=== PATIENT | female | born 1995 | race Caucasian/White ===

== ENCOUNTER 2017-05-15 09:26 | Emergency (ER) | payer MEDICARE, MEDICAID ==
[~2017-05-15] VITALS: Ht 172.7 cm; Wt 72.6 kg
--- NOTE | 2017-05-15 10:11 | Emergency Room Report ---
History of Present Illness General Chief Complaint: Lower Extremity Injury Source: Medical Record Present Illness HPI 21-year-old female with complaint of right foot swelling 5 days after ankle and foot injury at daycare. Has been monitored by nurse at facility for last 5 days but sent to ER for x-ray after swelling did not completely resolve Patient complaining of pain to both right ankle and top of right foot Ambulating with right-sided limp Not taking any medication for pain No previous injury to right ankle or foot Allergies: Coded Allergies: No Known Allergies (Unverified , 05/15/17) Patient History Past Medical History: none Past Surgical History: none Social History: Denies: smoking, alcohol use, drug use Last Menstrual Period: 04/2017 Now: No Immunizations: UTD Reviewed Nursing Documentation: PMH: Agreed, PSxH: Agreed Nursing Documentation-PMH Past Medical History: No History, Except For Hx Seizures: Yes - sppech disorder, Develomental and Intellectual Delay Review of Systems All Other Systems: negative except mentioned in HPI Physical Exam Vital Signs Date Time Temp Pulse Resp B/P (MAP) Pulse Ox O2 Delivery O2 Flow Rate FiO2 05/15/17 09:30 98.1 94 16 111/66 99 Room Air Sp02 EP Interpretation: reviewed, normal General Appearance: normal inspection, well appearing, no apparent distress, alert, GCS 15, non-toxic Head: normocephalic, atraumatic Eyes: bilateral eye PERRL, bilateral eye EOMI ENT: normal ENT inspection, hearing grossly normal, normal pharynx, no angioedema, normal voice, TMs + canals normal, uvula midline, moist mucus membranes Neck: normal inspection, full range of motion, supple, thyroid normal, no meningismus, no bony tend Respiratory: normal inspection, lungs clear, normal breath sounds, no rhonchi, no respiratory distress, no retraction, no accessory muscle use, no wheezing, speaking full sentences Cardiovascular #1: regular rate, rhythm, no edema, no JVD, normal capillary refill Gastrointestinal: normal inspection, normal bowel sounds, non tender, soft, no mass, no peritonitis, non-distended, no guarding, no hernia, no pulsatile mass Genitourinary: no CVA tenderness Musculoskeletal: normal inspection, back normal, normal range of motion, no calf tenderness, pelvis stable, Mari's Sign negative, other - right foot: mild swelling to the dorsum and right lateral malleolus Neurologic: normal inspection, alert, oriented x3, responsive, customs inspector III-XII nml as tested, motor strength/tone normal, cerebellar normal, normal gait, speech normal Psychiatric: normal inspection, judgement/insight normal, mood/affect normal, no suicidal/homicidal ideation, no delusions Skin: normal inspection, normal color, no rash Lymphatic: normal inspection, no adenopathy Medical Decision Making Diagnostic Impression: Primary Impression: Right foot injury Qualified Codes: S99.921A - Unspecified injury of right foot, initial encounter Additional Impression: Foot contusion Qualified Codes: S90.31XA - Contusion of right foot, initial encounter ER Course X-rays of the ankle and foot negative for acute trauma on ER review Likely minor foot contusion Advised ice, compression, elevation NSAIDs as needed ER course: Patient has remained stable during ED stay. Patient is to be discharged to home. Prescriptions given are murrieta Patient is instructed to follow up with their primary care doctor within 5 days. Strict return precautions discussed with patient such as fever, chills, worsening/severe pain, nausea, vomiting, which may indicate severe illness. Patient verbalizes understanding and agrees with plan. Please note that this Emergency Department Report was dictated using [employer] technician technology software, occasionally this can lead to erroneous entry secondary to interpretation by the dictation equipment Other X-Ray Diagnostic Results Other X-Ray Diagnostic Results #1: X-Ray ordered: Right foot # of Views/Limited Vs Complete: 3 View Indication: Pain EP Interpretation: Yes Interpretation: no dislocation, no soft tissue swelling, no fractures Impression: No acute disease Electronically Signed by: Dr Arvind Samuels MD Other X-Ray Diagnostic Results #2: X-Ray ordered: Right ankle # of Views/Limited Vs Complete: 3 View Indication: Pain EP Interpretation: Yes Interpretation: no dislocation, no soft tissue swelling, no fractures Impression: No acute disease Electronically Signed by: Dr Arvind Samuels MD Last Vital Signs Date Time Temp Pulse Resp B/P (MAP) Pulse Ox O2 Delivery O2 Flow Rate FiO2 05/15/17 09:30 98.1 94 16 111/66 99 Room Air Status: improved Disposition: HOME, SELF-CARE ARVIND SAMUELS M.D. May 15, 2017 10:11
[2017-05-15] MEDS ORDERED: IBUPROFEN600 MG ORAL (10:13)
[2017-05-15 10:20] VITALS: BP 105/62
--- NOTE | 2017-05-15 11:26 | Diagnostic Imaging Report ---
Indication: Reason For Exam: PAIN Technique: 3 views of the right ankle Comparison: none Findings: Unusual spur seen coming off the tip of the distal fibula. May indicate developmental abnormality or higher injury. No acute fractures. No dislocations. Impression: Unusual distal fibular spur No acute bony trauma This agrees with the preliminary interpretation provided by the emergency room physician
--- NOTE | 2017-05-15 17:10 | Diagnostic Imaging Report ---
Indication: Reason For Exam: PAIN Technique: 3 views right foot Comparison: none Findings: No acute fractures. No dislocations. Mild hammertoe deformity of the fourth and fifth toes. Joint spaces are preserved. Impression: No acute process. This agrees with the preliminary interpretation provided by the emergency room physician
== END 2017-05-15 10:20 | disposition home or self-care (01) ==
LOC: EMR 09:57
DX: S90.31XA Contusion of right foot, initial encounter (principal); X58.XXXA Exposure to other specified factors, initial encounter; Y92.210 Daycare center as the place of occurrence of the external cause
CPT/HCPCS: 99284